=== PATIENT | male | born 1985 | race Caucasian/White ===

== ENCOUNTER 2018-03-14 09:51 | Emergency (ER) | payer OTHER ==
[2018-03-14 10:25] VITALS: BMI 22.3
--- NOTE | 2018-03-14 10:41 | RAD ---
HISTORY: chest pain COMPARISON: Comparison chest 10/24/2016 TECHNIQUE: Chest PA and lateral FINDINGS: LUNGS: No active pulmonary disease. PLEURA: No significant pleural effusion identified. No pneumothorax apparent. CARDIOVASCULAR: Normal. OSSEOUS STRUCTURES: No significant abnormalities. VISUALIZED UPPER ABDOMEN: Normal. OTHER FINDINGS: None. IMPRESSION: No active disease.
[2018-03-14 11:22] LABS: BASO # 0.1 K/uL (0.0-0.2); BASO % 1.3 % (0.0-2.0); EOS # 0.5 K/uL (0.0-0.7); EOS % 5.2 % (0.0-4.0); HEMOGLOBIN 17.7 g/dL (12.0-18.0); LYMPH # 2.5 K/uL (1.0-4.3); LYMPH % 24.6 % (20.0-40.0); MEAN CELL VOLUME 95.8 fL (80.0-94.0); MEAN CORPUSCULAR HEMOGLOBIN 33.5 pg (27.0-31.0); MEAN PLATELET VOLUME 8.3 fL (7.2-11.7); MONO # 0.8 K/uL (0.0-0.8); MONO % 7.9 % (0.0-10.0); NEUT # 6.2 K/uL (1.8-7.0); NRBC % 0.1 % (0.0-2.0); RBC 5.27 Mil/uL (4.40-5.90); RED CELL DISTRIBUTION WIDTH 12.9 % (11.5-14.5); WHITE BLOOD COUNT 10.2 K/uL (4.8-10.8)
[2018-03-14 11:31] LABS: URINE BILIRUBIN NEGATIVE (NEGATIVE); URINE BLOOD 1+ (NEGATIVE); URINE CLARITY Hazy (Clear); URINE COLOR Yellow (YELLOW); URINE GLUCOSE (UA) NORMAL (Normal); URINE LEUKOCYTE ESTERASE NEG Leu/uL (Negative); URINE PROTEIN 1+ mg/dL (NEGATIVE); URINE UROBILINOGEN NORMAL mg/dL (0.2-1.0)
[2018-03-14 11:34] LABS: ALB/GLOB RATIO 1.2 (1.0-2.1); ALBUMIN 4.9 g/dL (3.5-5.0); ALT/SGPT 24 U/L (21-72); AST/SGOT 35 U/L (17-59); BLOOD UREA NITROGEN 11 mg/dL (9-20); CALCIUM 9.4 mg/dl (8.6-10.4); GFR AFRICAN-AMERICAN > 60; GFR NON-AFRICAN AMERICAN > 60; HDL CHOLESTEROL 72 mg/dL (30-70)
[2018-03-14 11:45] LABS: LDL CHOLESTEROL 87 mg/dL (0-129)
[2018-03-14 11:46] LABS: CK-MB 1.03 ng/mL (0.0-3.38)
--- NOTE | 2018-03-14 12:05 | C.PDOC ---
History Of Present Illness 32 year old male, with no significant PMHx, presents to the ED for evaluation of back and chest pain which began 4 days ago. Patient states he feels the pain in his left upper back region and feels it radiate into his chest. The pain occurs in intermittent episodes, which last around 15 minutes. Patient states the pain worsened today; the pain has become sharp and is worse with deep inspiration. Patient took two tablets of Aspirin today without relief. He admits to smoking and denies any family cardiac history. Patient denies shortness of breath, nausea, vomiting, extremity numbness/weakness. Time Seen by Provider: 03/14/18 10:23 Chief Complaint (Nursing): Chest Pain History Per: Patient History/Exam Limitations: no limitations Onset/Duration Of Symptoms: Days (4), Intermittent Episodes Current Symptoms Are (Timing): Worse Quality: Sharp, "Pain" Associated Symptoms: denies: Nausea Exacerbating Factors: Deep Breathing Additional History Per: Patient Past Medical History Reviewed: Historical Data, Nursing Documentation, Vital Signs Vital Signs: Last Vital Signs Temp 98 F 03/14/18 13:07 Pulse 78 03/14/18 13:07 Resp 19 03/14/18 13:07 BP 136/72 03/14/18 13:07 Pulse Ox 98 03/14/18 13:07 - Medical History PMH: No Chronic Diseases Surgical History: No Surg Hx Family History: States: Unknown Family Hx - Social History Hx Tobacco Use: Yes Hx Alcohol Use: No Hx Substance Use: No - Immunization History Hx Tetanus Toxoid Vaccination: Yes Hx Influenza Vaccination: No Hx Pneumococcal Vaccination: No Review Of Systems Cardiovascular: Positive for: Chest Pain Respiratory: Negative for: Shortness of Breath Gastrointestinal: Negative for: Nausea, Vomiting Musculoskeletal: Positive for: Back Pain Neurological: Negative for: Weakness, Numbness Physical Exam - Physical Exam Appears: Non-toxic, No Acute Distress Skin: Normal Color, Warm, Dry Head: Atraumatic, Normacephalic Eye(s): bilateral: Normal Inspection Oral Mucosa: Moist Neck: Normal ROM, Trachea Midline, Supple Chest: Symmetrical, No Deformity, Tenderness (to left anterior chest wall ) Cardiovascular: Rhythm Regular, No Murmur Respiratory: Normal Breath Sounds, No Rales, No Rhonchi, No Wheezing Gastrointestinal/Abdominal: Soft, No Tenderness, No Guarding, No Rebound Back: Other (tenderness to left scapular area ) Extremity: Normal ROM, Capillary Refill (less than 2 seconds ) Neurological/Psych: Oriented x3, Normal Speech, Normal Cognition ED Course And Treatment - Laboratory Results Result Diagrams: 03/14/18 11:15 03/14/18 11:15 Lab Interpretation: No Acute Changes ECG: Interpreted By Me, Viewed By Me ECG Rhythm: Sinus Rhythm ECG Interpretation: No Acute Changes Rate From EC (RAD) - Other Rad CXR X-Ray: Interpreted by Me, Viewed By Me, Read By Radiologist Interpretation: HISTORY: chest pain. COMPARISON: Comparison chest 2015. TECHNIQUE: Chest PA and lateral. FINDINGS: LUNGS: No active pulmonary disease. PLEURA: No significant pleural effusion identified. No pneumothorax apparent. CARDIOVASCULAR: Normal. OSSEOUS STRUCTURES: No significant abnormalities. VISUALIZED UPPER ABDOMEN: Normal. OTHER FINDINGS: None. IMPRESSION: No active disease. Medical Decision Making Medical Decision Making: Impression: 32 year old male with chest pain and back pain Plan: * bloodwork * urinalysis * CXR * EKG Progress: Bloodwork reviewed with no acute findings, neg troponin and lipid panel within normal limits. EKG ordered and reviewed with no ischemic changes CXR showed no active cardiopulmonary disease Patient remained well in no distress during ED evaluation. Based on the negative findings on diagnostics and few days of this pain it is unlikely cardiac. On re-evaluation patient was sitting comfortably on stretcher in no distress. I explained all of his results and provided copy of the results. He feels comfortable going home and will be discharged. Patient given follow up instructions. Instructed to return to ER if symptoms worsen or new symptoms arise. Disposition Counseled Patient/Family Regarding: Studies Performed, Diagnosis, Need For Followup - Disposition Referrals: [facility] [Outside] [facility] [Outside] Disposition: HOME/ ROUTINE Disposition Time: 12:54 Condition: STABLE Additional Instructions: Follow up with your primary medical doctor or clinic in 2-5 days for further evaluation. Take medications as prescribed. Return to the emergency department at any time if symptoms persist or worsen. Instructions: Pleuritic Chest Pain (DC) Forms: [facility] (Dominican) - POA Present On Arrival: None - Clinical Impression Clinical Impression: Pleuritic pain - PA / DESIGN COORDINATOR / Resident Statement MD/DO has reviewed & agrees with the documentation as recorded. - Scribe Statement The provider has reviewed the documentation as recorded by the Scribe (Paola Mendiola) All medical record entries made by the Scribe were at my direction and personally dictated by me. I have reviewed the chart and agree that the record accurately reflects my personal performance of the history, physical exam, medical decision making, and the department course for this patient. I have also personally directed, reviewed, and agree with the discharge instructions and disposition.
[2018-03-14 12:11] LABS: B-TYPE NATRIURETIC PEPTIDE < 11.1 pg/mL (0-450)
[2018-03-14 13:07] VITALS: BP 136/72; PULSE 78; RESP 19; TEMP 98; O2SAT 98
--- NOTE | 2018-03-15 19:18 | CARD ---
APPROVED REPORT EKG Measurement Heart [id number] ID [id number] <Conclusion> Normal sinus rhythm ST elevation, probably due to early repolarization Borderline ECG
== END 2018-03-14 13:07 | disposition home or self-care (01) ==
LOC: C.ER 09:51
DX: R07.81 Pleurodynia (principal)